=== PATIENT | male | born 1985 ===

== ENCOUNTER 2018-06-21 15:49 | Outpatient (REF) | payer MEDICAID, SELFPAY ==
[2018-06-21 19:19] LABS: HCT 43.9 % (40.0-50.0); HGB 14.7 g/dL (13.5-17.5); Mean Corp. HGB Concentration 33.5 g/dL (32.0-36.0); Mean Corpuscular Hemoglobin 34.1 pg (27.0-33.0); Mean Corpuscular Volume 101.9 fL (80-95); Platelet Count 230 x1000/uL (130-400); RBC 4.31 m/cumm (4.50-6.00); RBC Distribution Width 14.1 % (11.8-14.1); White Blood Cell Count 7.06 k/cumm (4.4-10.8)
[2018-06-21 19:54] LABS: ALT 31 U/L (12-78); AST 47 U/L (15-37); Albumin 4.3 g/dL (3.4-5.0); Alkaline Phosphatase 119 U/L (46-116); Anion Gap 15.9 mmol/L (3-11); BUN 8 mg/dL (7-18); Bilirubin, Total 0.9 mg/dL (0.2-1.0); CO2 24.1 mmol/L (21.0-32.0); CREATININE 0.69 mg/dL (0.70-1.30); Chloride 103 mmol/L (98-107); Folate 6.6 ng/mL (8.6-20.0); Glucose 68 mg/dL (70-100); Potassium 4.3 mmol/L (3.5-5.1); Sodium 143 mmol/L (136-145); Total Protein 7.9 g/dL (6.4-8.2); Vitamin B12 682 pg/mL (193-986)
== END 2018-06-21 15:50 ==
LOC: NCHCN 15:49
PROVIDERS: PCP Nurse Practitioner Family; Visit Provider Nurse Practitioner Family
DX: F10.10 Alcohol abuse, uncomplicated (principal)
CPT/HCPCS: 80053; 85027; 82607; 82746

== ENCOUNTER 2020-01-27 10:01 | Outpatient (REF) | payer MEDICAID, SELFPAY ==
[2020-01-27 19:06] LABS: HCT 37.9 % (40.0-50.0); HGB 12.2 g/dL (13.5-17.5); Mean Corp. HGB Concentration 32.2 g/dL (32.0-36.0); Mean Corpuscular Hemoglobin 29.7 pg (27.0-33.0); Mean Corpuscular Volume 92.2 fL (80-95); Platelet Count 343 x1000/uL (130-400); RBC 4.11 m/cumm (4.50-6.00); RBC Distribution Width 18.3 % (11.8-14.1)
[2020-01-27 19:15] LABS: Iron 34 ug/dL (65-175)
[2020-01-27 19:44] LABS: ALT 36 U/L (16-63); AST 40 U/L (15-37); Albumin 3.7 g/dL (3.4-5.0); Alkaline Phosphatase 123 U/L (46-116); Anion Gap 11.1 mmol/L (3-11); BUN 9 mg/dL (7-18); Bilirubin, Total 0.3 mg/dL (0.2-1.0); CO2 26.9 mmol/L (21.0-32.0); CREATININE 0.72 mg/dL (0.70-1.30); Calcium 9.1 mg/dL (8.5-10.1); Chloride 105 mmol/L (98-107); Ferritin 43 ng/mL (26-388); Folate 13.4 ng/mL (8.6-20.0); Glucose 83 mg/dL (74-106); Magnesium 1.5 mg/dL (1.8-2.4); Potassium 4.4 mmol/L (3.5-5.1); Sodium 143 mmol/L (136-145); Total Protein 7.5 g/dL (6.4-8.2); Vitamin B12 671 pg/mL (193-986)
== END 2020-01-27 10:21 ==
LOC: NCHCN 10:01
PROVIDERS: PCP Nurse Practitioner Family; Visit Provider Nurse Practitioner Family
DX: F10.10 Alcohol abuse, uncomplicated (principal); G62.9 Polyneuropathy, unspecified
CPT/HCPCS: 80053; 85027; 82607; 82728; 82746; 83540; 83735